=== PATIENT | female | born 1970 | race Caucasian/White ===

== ENCOUNTER 2020-10-09 19:49 | Emergency (ER) | payer OTHER ==
[~2020-10-09 19:49] MED LIST: BACLOFEN 10MG T10 MG PO; CLARITIN-D 121 EACH PO; IBUPROFEN800 MG PO; MEDROL 4MG DOSEP4 MG PO; MOTRIN600 MG PO; NEURONTIN100 MG PO; NORCO 5-325 TA1 EACH PO; PEPCID AC20 MG PO; PERCOCET 7.5-31 EACH PO; TESSALON PERLE100 M1 PO; TESSALON PERLE100 MG PO; ZOFRAN8 MG PO
[2020-10-09] MEDS ORDERED: VIBRAMYCIN100 MG PO (21:33)
== END 2020-10-09 21:50 | disposition home or self-care (01) ==
LOC: FER 19:49
DX: K04.7 Periapical abscess without sinus (principal); K02.9 Dental caries, unspecified; Z88.5 Allergy status to narcotic agent; Z88.6 Allergy status to analgesic agent; Z88.0 Allergy status to penicillin; Z91.040 Latex allergy status; Z87.891 Personal history of nicotine dependence
CPT/HCPCS: 99283; J1885; Q0163

== ENCOUNTER 2020-11-15 07:43 | Emergency (ER) | payer OTHER ==
[~2020-11-15 07:43] MED LIST changes: +VIBRAMYCIN100 MG PO
[2020-11-15 09:47] LABS: BASOPHIL 0.6 % (0-2); EOSINOPHIL 1.3 % (0-5); HCT 42.6 % (37.0-47.0); HGB 13.7 g/dl (12.5-16.0); LYMPHOCYTE 37.2 % (15-48); MCH 30.1 pg (25.0-31.0); MCHC 32.2 g/dL (32.0-36.0); MCV 93.6 fL (78.0-100.0); MONOCYTE 5.9 % (0-12); NEUTROPHIL 54.8 % (41-80); NRBC 0; PLT 273 K/uL (150-400); RBC 4.55 M/uL (4.20-5.40); RDW 13.1 % (11.5-14.0); WBC 9.3 K/uL (4.0-10.5)
[2020-11-15 10:02] LABS: ALBUMIN 3.9 g/dL (3.4-5.0); BILIRUBIN - TOTAL 0.2 mg/dL (0.2-1.0); BUN/CREAT RATIO (CALC) 22.4 RATIO; CREATININE 0.76 mg/dL (0.51-0.95); GLOBULIN (CALCULATION) 3.7 g/dL; POTASSIUM 3.9 mmol/L (3.5-5.1); TOTAL PROTEIN 7.6 g/dL (6.4-8.2)
== END 2020-11-15 13:05 | disposition home or self-care (01) ==
LOC: FER 07:43
PROVIDERS: Emergency Medicine
DX: R55 Syncope and collapse (principal); Z87.891 Personal history of nicotine dependence; Z88.5 Allergy status to narcotic agent
CPT/HCPCS: 36415; 70450; 70553; 80053; 85025; 93005; A9579

== ENCOUNTER 2020-11-29 07:59 | Emergency (ER) | payer OTHER ==
[2020-11-29] MEDS ORDERED: NORCO 5-325 TA1 EACH PO (10:20)
[2020-11-29] MEDS ORDERED: ZOFRAN4 M1 PO (10:20)
== END 2020-11-29 10:53 | disposition home or self-care (01) ==
LOC: FER 07:59
DX: S20.211A Contusion of right front wall of thorax, initial encounter (principal); Z88.0 Allergy status to penicillin; Z88.5 Allergy status to narcotic agent; W19.XXXA Unspecified fall, initial encounter; Y92.009 Unspecified place in unspecified non-institutional (private) residence as the place of occurrence of the external cause
CPT/HCPCS: 71101

== ENCOUNTER 2020-12-03 02:10 | Emergency (ER) | payer OTHER ==
[~2020-12-03 02:10] MED LIST changes: +ZOFRAN4 M1 PO
[2020-12-03 03:17] LABS: INR 1.07 (0.9-1.2); PROTHROMBIN TIME 13.2 SECONDS (11.4-13.6)
[2020-12-03 03:25] LABS: ALBUMIN 3.8 g/dL (3.4-5.0); BILIRUBIN - TOTAL 0.4 mg/dL (0.2-1.0); BUN/CREAT RATIO (CALC) 17.5 RATIO; CREATININE 0.8 mg/dL (0.51-0.95); GLOBULIN (CALCULATION) 3.5 g/dL; POTASSIUM 4.2 mmol/L (3.5-5.1); TOTAL PROTEIN 7.3 g/dL (6.4-8.2)
[2020-12-03 03:31] LABS: PRO-BNP 73 pg/mL (<125)
[2020-12-03 03:39] LABS: BASOPHIL 0.6 % (0-2); EOSINOPHIL 0.8 % (0-5); HCT 43.1 % (37.0-47.0); HGB 13.9 g/dl (12.5-16.0); LYMPHOCYTE 27.2 % (15-48); MCHC 32.3 g/dL (32.0-36.0); MCV 92.9 fL (78.0-100.0); MONOCYTE 5.2 % (0-12); MPV 11.1 fL (6.0-9.5); NEUTROPHIL 65.9 % (41-80); NRBC 0; PLT 275 K/uL (150-400); RBC 4.64 M/uL (4.20-5.40); RDW 13.3 % (11.5-14.0); WBC 10.4 K/uL (4.0-10.5)
== END 2020-12-03 04:30 | disposition home or self-care (01) ==
LOC: FER 02:10
PROVIDERS: Emergency Medicine
DX: R55 Syncope and collapse (principal); M19.90 Unspecified osteoarthritis, unspecified site; Z88.0 Allergy status to penicillin; Z88.5 Allergy status to narcotic agent; Z88.6 Allergy status to analgesic agent; Z91.018 Allergy to other foods; Z79.891 Long term (current) use of opiate analgesic
CPT/HCPCS: 36415; 36600; 71045; 80053; 82803; 83690; 83880; 84484; 85025; 85610; 93005

== ENCOUNTER 2020-12-30 02:06 | Emergency (ER) | payer OTHER ==
[2020-12-30] MEDS ORDERED: VIBRAMYCIN100 MG PO (03:16)
[2020-12-30] MEDS ORDERED: BACTROBAN NASAL1 GM TOP (03:16)
== END 2020-12-30 03:23 | disposition home or self-care (01) ==
LOC: FER 02:06
DX: S90.561A Insect bite (nonvenomous), right ankle, initial encounter (principal); Z88.5 Allergy status to narcotic agent; Z91.040 Latex allergy status; W57.XXXA Bitten or stung by nonvenomous insect and other nonvenomous arthropods, initial encounter
CPT/HCPCS: 99282

== ENCOUNTER 2022-01-24 01:13 | Emergency (ER) | payer OTHER ==
[~2022-01-24 01:13] MED LIST changes: +BACTROBAN NASAL1 GM TOP
[2022-01-24] MEDS ORDERED: ONDANSETRON ODT4 MG PO (03:48)
[2022-01-24] MEDS ORDERED: OXY-IR 5MG5 MG PO (03:48)
== END 2022-01-24 04:55 | disposition home or self-care (01) ==
LOC: FER 01:13
DX: S52.502A Unspecified fracture of the lower end of left radius, initial encounter for closed fracture (principal); S52.612A Displaced fracture of left ulna styloid process, initial encounter for closed fracture; Z87.891 Personal history of nicotine dependence; Z88.6 Allergy status to analgesic agent; Z88.5 Allergy status to narcotic agent; Z88.0 Allergy status to penicillin; Z20.822 Contact with and (suspected) exposure to COVID-19; Z28.310 Unvaccinated for COVID-19; W03.XXXA Other fall on same level due to collision with another person, initial encounter; Y92.009 Unspecified place in unspecified non-institutional (private) residence as the place of occurrence of the external cause
CPT/HCPCS: 73080; 73090; 73100; 73110; 96374; 96375; J1170; J2250; J2405; U0002